=== PATIENT | male | born 1960 | race Caucasian/White ===

== ENCOUNTER 2021-10-25 15:22 | Inpatient (IN) | payer OTHER ==
[2021-10-25 20:38] LABS: BASO % 0.6 % (0-2.0); EOS % 3.2 % (0-4.5); HEMATOCRIT 43.5 % (35.4-49); HEMOGLOBIN 14.5 GM/dL (11.7-16.9); LYMPH % 22.5 % (8-40); MCHC 33.3 g/dl (32.0-35.9); MEAN PLT VOLUME 8.1 fl (7.5-11.1); MONO % 6.7 % (3.8-10.2); PLATELET COUNT 326 10^3/uL (134-434); RBC 5.18 M/mm3 (4.00-5.60); WHITE BLOOD COUNT 11.1 K/mm3 (4.0-10.0)
[2021-10-25 20:59] LABS: ALBUMIN 4.2 g/dl (3.4-5.0); BLOOD UREA NITROGEN 11.8 mg/dL (7-18); CALCIUM 9.7 mg/dL (8.5-10.1)
[2021-10-25 21:02] LABS: CREATININE 0.9 mg/dL (0.55-1.3)
[2021-10-25 21:04] LABS: BILIRUBIN,TOTAL 0.3 mg/dL (0.2-1); TOT PROT 8.3 g/dl (6.4-8.2)
[2021-10-25] MEDS ORDERED: DEXAMETHASONE SOD PHOSPHATE 10 MG/1 ML VIAL IVPUSH ONE (21:28)
[2021-10-25] MEDS ORDERED: DEXAMETHASONE SOD PHOSPHATE 10 MG/1 ML VIAL ONE (22:12)
[2021-10-25 22:32] LABS: INR 1.06 (0.83-1.09); PROTHROMBIN TIME (PATIENT) 12.2 SEC (9.7-13.0)
[2021-10-25 22:38] LABS: URINE APPEARANCE CLEAR; URINE BILIRUBIN NEGATIVE (NEGATIVE); URINE COLOR YELLOW; URINE GLUCOSE (UA) NEGATIVE (NEGATIVE); URINE KETONE 1+ (NEGATIVE); URINE LEUK ESTERASE NEGATIVE (NEGATIVE); URINE NITRITE NEGATIVE (NEGATIVE); URINE PROTEIN NEGATIVE (NEGATIVE)
[2021-10-25] MEDS ORDERED: LIDOCAINE 5% TOPICAL PATCH TP ONE (23:24)
[2021-10-25] MEDS ORDERED: LIDOCAINE 5% TOPICAL PATCH ONE (23:30)
[2021-10-26 01:07] LABS: INR 1.08 (0.83-1.09); PROTHROMBIN TIME (PATIENT) 12.4 SEC (9.7-13.0)
[2021-10-26] MEDS ORDERED: ACETAMINOPHEN 1000 MG/100 ML BAG IVPB PRN (01:56)
[2021-10-26] MEDS ORDERED: DEXTROSE 5%-0.45% SALINE 1,000 ML IV SCH (02:00)
[2021-10-26] MEDS ORDERED: LIDOCAINE 5% TOPICAL PATCH ONE (08:00)
[2021-10-26] MEDS ORDERED: LIDOCAINE 1%/EPI 1:100000 (20 ML MULTI DOSE VIAL) ONE (08:20)
[2021-10-26] MEDS ORDERED: GENTAMICIN SO4 80 MG/2 ML VIAL ONE (08:20)
[2021-10-26] MEDS ORDERED: THROMBIN (BOVINE) 20,000 UNIT VIAL TP ONE (08:22)
[2021-10-26] MEDS ORDERED: fentaNYL CITRATE 250 MCG/5 ML VIAL ONE ×2 (10:30)
[2021-10-26] MEDS ORDERED: PROPOFOL 20 ML ONE ×3 (10:31→12:23)
[2021-10-26] MEDS ORDERED: SUCCINYLCHOLINE CHLORIDE 200 MG/10 ML SYRINGE ONE (10:31)
[2021-10-26] MEDS ORDERED: ROCURONIUM BROMIDE 50 MG/5 ML SYRINGE ONE (10:31)
[2021-10-26] MEDS ORDERED: MIDAZOLAM HCL 2 MG/2 ML SINGLE DOSE VIAL ONE (10:42)
[2021-10-26] MEDS ORDERED: TRANEXAMIC ACID 1000 MG/10 ML VIAL ONE (10:59)
[2021-10-26] MEDS ORDERED: LIDOCAINE PATCH REMOVAL MC ONE ×2 (11:00→13:43)
[2021-10-26] MEDS ORDERED: VANCOMYCIN 1,000 MG VIAL (RESTRICTED TO ID ONLY) IVPB ONE (11:03)
[2021-10-26] MEDS ORDERED: ceFAZolin SODIUM 1 GM VIAL IVPB ONE (11:03)
[2021-10-26] MEDS ORDERED: LIDOCAINE 1%/EPI 1:100000 (50 ML MULTI DOSE VIAL) PNB ONE (11:07)
[2021-10-26] MEDS ORDERED: ePHEDrine SULFATE 50 MG/1 ML AMPULE ONE (11:13)
[2021-10-26] MEDS ORDERED: HYDROGEN PEROXIDE 473 ML PO ONE (11:31)
[2021-10-26] MEDS ORDERED: GENTAMICIN 80MG PREMIX BAG IVPB ONE (11:31)
[2021-10-26] MEDS ORDERED: THROMBIN (BOVINE) 5,000 UNIT VIAL TP ONE (11:32)
[2021-10-26] MEDS ORDERED: GELATIN, ABSORBABLE 12-7MM EACH SPONGE TP ONE (11:33)
[2021-10-26] MEDS ORDERED: NEOSTIGMINE METHYLSULFATE 0.5 MG/1 ML - 10 ML MDV ONE (12:45)
[2021-10-26] MEDS ORDERED: ONDANSETRON 4 MG/2 ML VIAL IVPUSH PRN ×3 (13:11→13:43)
[2021-10-26] MEDS ORDERED: oxyCODONE HCL 5 MG TABLET PO PRN ×3 (13:11→13:43)
[2021-10-26] MEDS ORDERED: PROMETHAZINE HCL 25 MG/1 ML VIAL IVPUSH PRN ×2 (13:11→13:43)
[2021-10-26] MEDS ORDERED: diphenhydrAMINE HCL 25 MG CAPSULE (FP) PO PRN (13:43)
[2021-10-26] MEDS: LACTATED RINGERS SOLUTION 1,000 ML/1,000 ML INFUS.BAG IV SCH (16:17)
[2021-10-26] MEDS: HEPARIN NA (PORCINE) 5,000 UNITS/ML 1ML VIAL SQ SCH ×2 (16:19→21:31)
[2021-10-26] MEDS: DOCUSATE SODIUM 100 MG CAPSULE (FP) PO SCH ×2 (16:19→21:32)
[2021-10-26] MEDS ORDERED: DEXTROSE 5%-WATER - 50 ML IVPB ONE (17:41)
[2021-10-26] MEDS ORDERED: ceFAZolin SODIUM 1 GM VIAL ONE (17:41)
[2021-10-26] MEDS: CEFAZOLIN 1 GM in DEXTROSE 5%-WATER - 1 GM/50 ML IVPB IVPB SCH (17:47)
[2021-10-26] MEDS: ACETAMINOPHEN 1000 MG/100 ML BAG IVPB SCH (20:58)
[2021-10-27] MEDS ORDERED: ceFAZolin SODIUM 1 GM VIAL ONE ×2 (01:23→10:07)
[2021-10-27] MEDS ORDERED: DEXTROSE 5%-WATER - 50 ML IVPB ONE ×2 (01:24→10:08)
[2021-10-27] MEDS: CEFAZOLIN 1 GM in DEXTROSE 5%-WATER - 1 GM/50 ML IVPB IVPB SCH ×2 (01:37→10:10)
[2021-10-27] MEDS: ACETAMINOPHEN 1000 MG/100 ML BAG IVPB SCH ×2 (02:59→08:27)
[2021-10-27] MEDS: DOCUSATE SODIUM 100 MG CAPSULE (FP) PO SCH ×2 (05:52→14:22)
[2021-10-27] MEDS: HEPARIN NA (PORCINE) 5,000 UNITS/ML 1ML VIAL SQ SCH ×2 (05:53→14:22)
[2021-10-27] MEDS: LACTATED RINGERS SOLUTION 1,000 ML/1,000 ML INFUS.BAG IV SCH (06:45)
[2021-10-27 08:22] LABS: BASO % 0.2 % (0-2.0); HEMOGLOBIN 11.7 GM/dL (11.7-16.9); LYMPH % 12.6 % (8-40); MCH 27.1 pg (25.7-33.7); MCHC 31.6 g/dl (32.0-35.9); MEAN CELL VOLUME 85.7 fl (80-96); MEAN PLT VOLUME 8.4 fl (7.5-11.1); MONO % 7.4 % (3.8-10.2); NEUT % 79.8 % (42.8-82.8); PLATELET COUNT 275 10^3/uL (134-434); RBC 4.32 M/mm3 (4.00-5.60); WHITE BLOOD COUNT 17.7 K/mm3 (4.0-10.0)
[2021-10-27 08:51] LABS: CALCIUM 8.4 mg/dL (8.5-10.1)
[2021-10-27 08:52] LABS: BLOOD UREA NITROGEN 15.9 mg/dL (7-18)
[2021-10-27 08:55] LABS: CREATININE 0.8 mg/dL (0.55-1.3)
[2021-10-27 08:57] LABS: BILIRUBIN,TOTAL 0.4 mg/dL (0.2-1)
[2021-10-27 09:00] LABS: ALBUMIN 3.1 g/dl (3.4-5.0); TOT PROT 6.2 g/dl (6.4-8.2)
[2021-10-27] MEDS ORDERED: FOLIC ACID 1 MG TABLET (FP) PO SCH (10:00)
[2021-10-27] MEDS ORDERED: FERROUS SO4 325 MG TABLET (FP) PO SCH (10:00)
[2021-10-27] MEDS ORDERED: POLYETHYLENE GLYCOL (HEALTHYLAX) 3350 17 GM PACKET PO SCH (10:00)
[2021-10-27 17:08] VITALS: BMI 33.4
[2021-10-27 17:19] VITALS: BP 132/62; PULSE 72; TEMP 97.8
== END 2021-10-27 18:26 | disposition home or self-care (01) | DRG 321 ==
LOC: JER 15:22 → JERBED 21:27 → J8W 10-26 14:57
PROVIDERS: ADMIT Internal Medicine; ATTEND Internal Medicine
PROC: 0RB30ZZ Excision of Cervical Vertebral Disc, Open Approach (ICD-10-PCS; 2021-10-26)
PROC: 00NW0ZZ Release Cervical Spinal Cord, Open Approach (ICD-10-PCS; 2021-10-26)
PROC: 4A11X4G Monitoring of Peripheral Nervous Electrical Activity, Intraoperative, External Approach (ICD-10-PCS; 2021-10-26)
PROC: 0RG20A0 Fusion of 2 or more Cervical Vertebral Joints with Interbody Fusion Device, Anterior Approach, Anterior Column, Open Approach (ICD-10-PCS; principal; 2021-10-26 10:30)
DX: M50.023 Cervical disc disorder at C6-C7 level with myelopathy (principal); M47.12 Other spondylosis with myelopathy, cervical region; M48.02 Spinal stenosis, cervical region; G95.20 Unspecified cord compression; M40.202 Unspecified kyphosis, cervical region; M51.26 Other intervertebral disc displacement, lumbar region; E66.9 Obesity, unspecified; Z68.33 Body mass index [BMI] 33.0-33.9, adult; R20.2 Paresthesia of skin
CPT/HCPCS: 36415; 70450-TC; 71046-TC-FY; 72125-TC; 72141-TC; 72146-TC; 72148-TC; 76000-TC-FY; 80048; 80053; 81003; 83690; 83880; 85025; 85610; 85730; 86850; 86900; 86901; 94010; 94760; 97116-GP; 97161-GP; 99285-25; C9803; J0131; J1100; J1644; U0003; U0005